=== PATIENT | male | born 1980 | race Two or more races ===

== ENCOUNTER 2022-08-05 13:51 | Emergency (ER) | payer MEDICAID ==
[2022-08-05 15:13] LABS: CARBON DIOXIDE,CO2 28.8 mmol/L (21.0-32.0); POTASSIUM,K 4.2 mmol/L (3.5-5.1)
[2022-08-05] MEDS ORDERED: Iopamidol 755 Mg/ML 100 ML Bottle IVPUSH ONE (18:56)
== END 2022-08-05 18:02 | disposition home or self-care (01) ==
LOC: MW.ED 13:51
DX: R42 Dizziness and giddiness (principal); Z20.822 Contact with and (suspected) exposure to COVID-19
CPT/HCPCS: 36415; 70450; 70496; 70498; 80053; 81003; 84443; 85025; 87635; 93005; 99284; Q9967; 93010; U0002